=== PATIENT | male | born 1970 ===

== ENCOUNTER 2023-01-27 08:30 | Outpatient (REF) | payer MEDICAID, SELFPAY ==
[2023-01-27 14:22] LABS: Cholesterol 208 mg/dL; HDL Cholesterol 44 mg/dL; LDL Cholesterol Calculated 147 mg/dl; Triglycerides 88 mg/dL
== END 2023-01-27 08:31 | disposition home or self-care (01) ==
LOC: HO.HHCL 08:30
PROVIDERS: Visit Provider Registered Nurse
DX: E78.2 Mixed hyperlipidemia (principal)
CPT/HCPCS: 36415; 80061

== ENCOUNTER 2023-03-16 14:02 | Outpatient (REF) | payer MEDICAID, OTHER, SELFPAY ==
[2023-03-16 16:36] LABS: Prostate Specific Antigen 0.71 ng/mL (<0.05-4.0)
[2023-03-17 04:59] LABS: CT PCR NOT DETECTED (Not Detect.); NG PCR NOT DETECTED (Not Detect.)
== END 2023-03-16 14:03 | disposition home or self-care (01) ==
LOC: HO.HHCL 14:02
PROVIDERS: Visit Provider Registered Nurse
DX: Z12.5 Encounter for screening for malignant neoplasm of prostate (principal); R30.0 Dysuria; R39.89 Other symptoms and signs involving the genitourinary system
CPT/HCPCS: 0353U; 36415; 84153; 87086

== ENCOUNTER 2024-01-24 13:44 | Inpatient (IN) | payer SELFPAY ==
[2024-01-24] VITALS (46 sets, daily range): BP systolic 49–148; BP diastolic 21–107; PULSE 80–141; RESP 14–24; TEMP 30–38.7; O2SAT 88–98; BMI 28.5; BMI 30.1
--- NOTE | ~2024-01-24 | XR_ITS ---
EXAMINATION: XR CHEST CLINICAL INFORMATION: Ventilation COMPARISON: None available. TECHNIQUE: Frontal view of the chest was obtained. FINDINGS: There is low lung volume bilaterally with bibasilar atelectasis and increase interstitial markings. There is endotracheal tube visualized with the tip 3.9 cm above the alvarado. Nasogastric tube is in the stomach. XR/XR chest 1V IMPRESSION: Well-positioned endotracheal tube and nasogastric tube. Bibasilar atelectasis.
--- NOTE | ~2024-01-24 | CT_ITS ---
EXAMINATION: CT ABDOMEN AND PELVIS WITHOUT AND WITH CONTRAST -GI BLEEDING STUDY CLINICAL INFORMATION: Rectal bleeding COMPARISON: None TECHNIQUE: Multidetector volumetric imaging was performed from the superior aspect of the liver through the pubic symphysis first without and then with intravenous contrast. A total of 80 mL of Omnipaque 350 was utilized for the study. Sagittal and coronal reformatted images were obtained on the technologist's workstation. This CT examination was performed using dose optimization techniques as appropriate, variously including the following: *Automated exposure control *Adjustment of mA and/or kV according to patient size (this includes techniques or standardized protocols for targeted exams where dose is matched to indication/reason for exam; i.e. extremities or head) *Use of iterative reconstruction technique DLP: 3077 mGy-cm (for all CT scans performed including the GI bleed study, the head CT and cervical spine CT) FINDINGS: LUNG BASES: Bibasilar atelectasis is present. There is a calcified left upper lobe granuloma. LIVER, GALLBLADDER, AND BILIARY TREE: The liver is normal in size, shape, and attenuation. No focal hepatic lesion or biliary ductal dilatation is present. The gallbladder is unremarkable with no evidence of radiopaque gallstones, gallbladder wall thickening, or obvious pericholecystic inflammatory changes. PANCREAS: Unremarkable. SPLEEN: Unremarkable. ADRENAL GLANDS: Unremarkable. KIDNEYS AND URETERS: The kidneys are normal in size, shape, and attenuation. No hydronephrosis, hydroureter, or calculi seen. No perinephric stranding. BLADDER: Blackman catheter is present in the bladder which is empty. GASTROINTESTINAL TRACT: The small and large bowel are unremarkable. The appendix is unremarkable. There is no extravasation of contrast seen into bowel lumen with no evidence to suggest active GI bleeding at this time. ABDOMINAL WALL: No significant hernia is appreciated. LYMPH NODES: Normal. VASCULAR: Unremarkable. PELVIC VISCERA: Unremarkable. OSSEOUS STRUCTURES: Unremarkable. CT/CT gi bleed abd pel wo/w IVcon IMPRESSION: A cause for the patient's rectal bleeding has not been found. No evidence of active GI bleeding at this time. Fleischner guidelines were followed.
--- NOTE | ~2024-01-24 | CT_ITS ---
EXAMINATION: CT HEAD WITHOUT CONTRAST CT CERVICAL SPINE WITHOUT CONTRAST CLINICAL INFORMATION: Fall. Pain. COMPARISON: None available. TECHNIQUE: Contiguous axial imaging was performed through the head and cervical spine without intravenous administration of contrast. Sagittal and coronal reformatted images also obtained. This CT examination was performed using dose optimization techniques as appropriate, variously including the following: *Automated exposure control *Adjustment of mA and/or kV according to patient size (this includes techniques or standardized protocols for targeted exams where dose is matched to indication/reason for exam; i.e. extremities or head) *Use of iterative reconstruction technique DLP: 3077 mGy-cm FINDINGS: Contrast within the arterial and venous structures limits evaluation for subarachnoid hemorrhage. Motion also slightly limits evaluation. The lateral, third and fourth ventricles are normally outlined. The cortical sulci and basal cisterns are normally outlined as well. There appears to be loss of baird-white differentiation. There is no acute territorial defect or evidence for parenchymal hemorrhage. Calvarium/scalp: Intact tach. Maxillofacial sinuses and mastoids: There is small maxillary sinus opacity and ethmoid sinus mucosal thickening. The remaining visualized maxillofacial sinuses and the mastoids are clear. There is nasopharyngeal fluid. Cervical spine: Motion limits evaluation The alignment is within normal limits. There is mild diffuse cervical disc degenerative change with loss of disc space, endplate change and posterior osteophytes associated with mild to moderate diffuse facet osteoarthritic hypertrophic change with multilevel mild spinal canal and neuroforaminal narrowing. No definitive fracture is seen. The soft tissues are unremarkable. There is upper lung field atelectatic change. The patient is intubated. CT/CT cervical spine wo IV con IMPRESSION: Study is limited by motion and contrast within the vascular system. 1. Study is limited for the evaluation of subarachnoid hemorrhage due to contrast within vascular structures. No evidence for parenchymal hemorrhage. 2. Loss of baird-white differentiation. This may be related to cerebral edema. Consider repeat/follow-up study 3. No evidence of acute fracture or dislocation cervical spine. 4. Mild to moderate cervical spondylosis. 5. Mild paranasal sinus disease.
--- NOTE | ~2024-01-24 | MR_ITS ---
EXAMINATION: MR BRAIN WITHOUT CONTRAST CLINICAL INFORMATION: Anorexic brain injury. COMPARISON: None available. TECHNIQUE: MRI of the brain was obtained using routine sequences without contrast. FINDINGS: Diffuse restricted diffusion and cerebral edema throughout the cerebral cortices, deep nuclei, and cerebellum with ADC values along the cerebral cortices measuring approximately 500. Near-complete effacement of the cerebral sulci and CSF spaces of the posterior fossa. There is flattening of the ventral brain stem and downward herniation of the cerebellar tonsils through the foramen magnum (0.8 cm). Heme-sensitive imaging is notable for diffuse venous engorgement without overt evidence of space-occupying hemorrhagic transformation. No evidence of obstructive hydrocephalus at this time. No midline shift. The patient is intubated with orogastric tube in place. Normal, homogeneous marrow signal. Mild mucosal thickening of the paranasal sinuses. No signal abnormalities within the mastoids. MR/MR head/brain wo con IMPRESSION: Diffuse cerebral edema and restricted diffusion throughout the cerebral cortices, deep nuclei, and cerebellum consistent with developing anoxic brain injury. There is downward herniation of the cerebellar tonsils through the foramen magnum (0.8 cm). No evidence of space-occupying hemorrhagic transformation at this time.
--- NOTE | 2024-01-24 14:18 | ED.CPR ---
HPI - CPR General Chief Complaint: Cardiac Arrest/CPR Stated Complaint: CARDIAC ARREST Time Seen by Provider: 01/24/24 14:15 Source: EMS Mode of arrival: EMS History of Present Illness ED Provider: Dr Zuñiga HPI narrative: 52-year-old male who arrives with CPR in progress, found down, unknown amount of time, has an IO in place, has received epi, the Richard is in place, did receive 1 shock for observed VFib while in the field, has received 1 treatment of Narcan, I gel is in place for airway management and EMS personnel report the smell of alcohol. Related Data Allergies Allergy/AdvReac Type Severity Reaction Status Date / Time Unable to Assess Allergy Unverified 01/24/24 14:04 Review of Systems Review of Systems: Yes unobtainable due to endotracheal tube PMFSH Past Medical History Source: nursing notes reviewed Physical Exam Vital Signs: Vital Signs: Last Vital Signs Temp 98.4 F 01/24/24 14:42 Pulse 120 H 01/24/24 14:47 Resp 16 01/24/24 14:42 BP 117/64 01/24/24 14:47 FiO2 100 01/24/24 14:29 BMI result Body Mass Index 28.5 Patient intubated Richard and CPR in progress Glucose in the field not consistent with hypoglycemia No traumatic injuries observed, there has been obvious urine incontinence. Medications Administered Discontinued Medications Generic Name Dose Route Start Last Admin Trade Name Freq PRN Reason Stop Dose Admin Epinephrine 5 mg/ Dextrose 255 mls @ 0 mls/hr 01/24/24 14:15 01/24/24 14:47 IVCONT 0 mcg/kg/min .Q0M RYAN 0 mls/hr Titration Protocol Per Protocol Pantoprazole Sodium 80 mg 01/24/24 14:25 01/24/24 14:47 Pantoprazole Sodium 40 Mg/10 Ml Vial IVPUSH 01/24/24 14:26 80 mg ONCE ONE Administration Medical Decision Making Medical Decision Making [facility] Narrative: ROSC obtained EKG: Marked ST globally, likely consistent with cardiac arrest/CPR, no ST elevations, HR-81, QTC within normal limits and IA is within normal limits. Intubated with 8.0/bougie with good color change, initial persisted hypoxia, repositioned tube for possibility of right mainstem and oxygenation improved. Bloody stool, large amount of reddish feces, no melena, gave 80 of Protonix, sent guaiac stool and ordered 2 units urgent release of blood while awaiting type and screen. 1425: 2U urgent release, chest x-ray demonstrates tip of the endotracheal tube at the alvarado, will instruct respiratory therapy to pulled back in additional cm otherwise no pneumothorax appreciated. 1431: Calling sister (Nancy), who informs this via motor generator set operator that her brother has a history of using a lot of drugs and alcohol and they have called her previously for overdose visits to the emergency room. She will be coming in as soon as she can establish a ride. 1500: I discussed the case with Dr. Calderon, ux designer, who will see the patient and make any additional recommendations. Differential Diagnosis Differential Diagnoses: The differential diagnosis associated with the presentation includes Please see the discussion above Admission/Observation Consideration of admission/observation: Escalation of care including admission/observation considered Please see the discussion above Consult Healthcare Provider Management of the patient was discussed with: Systems Eng Please see the discussion above Lab Data MDM Lab Attestation statement: I reviewed the patient's lab results. Please see the discussion above 01/24/24 14:29 01/24/24 14:29 Labs: Lab Results 01/24/24 Range/Units 14:29 PT 10.7 L (11.1-13.3) SEC INR 0.9 (0.9-1.1) Stool Occult Blood POSITIVE (NEGATIVE) Crossmatch See Detail Independent Interpretation I performed an independent interpretation of an: EKG Interpretation: Global ST njury likely secondary to prolonged CPR with chest compressions do not feel that this is a primary cardiac event. Radiology Impression Discussion of test interpretation with radiology: I have reviewed the radiologist's reading. Radiologist Impression: Please see the discussion above Independent Historian Clinical information obtained from an independent historian. History obtained from or confirmed by: Other Sister via motor generator set operator Social Determinants Patient?s care significantly limited by Social Determinants of Health including: Alcoholism and drug addiction in family Procedures Intubation Intubation Type:: Endotracheal Tube Insertion Intubation Date:: 01/24/24 Intubation Time:: 14:30 Time out performed: No sedative: none paralytic: other Laryngoscope: fiber optic video scope Assist Device Used: Bougie ET Tube Size: 8 ET Tube Uncuffed: No Tube Secured Depth (cm): 25 Tube Secured Location: teeth Tube Placement Confirmation: visualized tube passing through cords, equal breath sounds bilaterally, no breath sounds over epigastrium and confirmation by capnometry Patient Tolerated Procedure: well Intubation Complications: none Critical Care Time Critical Care Time Critical Care Time: Yes Total Critical Care Time: 90 Attestation: I personally attest to this time spent taking care of the patient. Discharge Plan Discharge Clinical Impression: Cardiac arrest, Polysubstance use disorder Patient Disposition: Admitted As Inpatient
--- NOTE | 2024-01-24 14:19 | ECG_ITS ---
Test Reason : QTC CHESK Blood Pressure : / mmHG Vent. Rate : 081 BPM Atrial Rate : 081 BPM P-R Int : 162 ms QRS Dur : 108 ms QT Int : 386 ms P-R-T Axes : 045 -05 055 degrees QTc Int : 448 ms Normal sinus rhythm Marked ST abnormality, possible inferior subendocardial injury Marked ST abnormality, possible anterolateral subendocardial injury Abnormal ECG No previous ECGs available Referred By: Ema Zuñiga Electronically Signed By:
[2024-01-24] MEDS: Norepinephrine Bitartrate/NS 32 MG/250 ML PLAST..BAG IVCONT (14:23)
--- NOTE | 2024-01-24 14:32 | PC.RT ---
Pt came in via EMS code blue, CPR in progress, being ambu bag ventilated through i gel inserted via EMS. Proper ACLS protocol was performed on pt. After getting pulses back, i gel was taken out by RT and MD attempted intubated x3. Pt intubated w/ an 8.0 ETT sitting 26 cm at the lip. Pt SATs were unstable at 60%. ETT was pulled back to 24 cm at the lip. SATs improved to mid 90's. Intubation was confirmed w/ colormetric CO2, quantitate CO2, bilateral breath sounds, increased SaO2, and chest x-ray. ETT secured. Pt placed on ventilator via ideal body weight settings, leo well.
[2024-01-24] MEDS: EPINEPHrine 5 MG in Dextrose 5 % 250 ML 55.08 MG IVCONT (14:35)
[2024-01-24 14:38] LABS: OBS Int Ctl Valid YES; OBS1 POSITIVE (NEGATIVE)
[2024-01-24 14:45] LABS: Basophils Absolute Auto 0.1 X10*3/uL (0.0-0.2); Basophils Percent Auto 0.6 % (0-2); Eosinophils Absolute Auto 0.2 X10*3/uL (0.0-0.4); Eosinophils Percent Auto 1.2 % (0-4); Hematocrit 40.4 % (42.0-52.0); Hemoglobin 13.1 g/dl (14.0-18.0); Imm Gran Abs Auto 0.48 X10*3/uL (0.00-0.03); Lymphocytes Absolute Auto 5.9 X10*3/uL (1.2-4.9); Lymphocytes Percent Auto 36.8 % (20-40); MANUAL DIFF FLAG SCAN; Mean Corpuscular HGB Conc 32.4 g/dl (31.0-36.0); Mean Corpuscular Hemoglobin 29.2 pg (27.0-33.0); Mean Platelet Volume 9.5 fL (9.4-12.4); Monocytes Absolute Auto 1.2 X10*3/uL (0.1-1.2); Monocytes Percent Auto 7.7 % (2-11); NRBC Pct Auto 0.1 /100WBC (0.0-0.2); Neutrophils Absolute Auto 8.1 x10*3/uL (2.0-8.3); Neutrophils Percent Auto 50.7 % (45-73); Platelet Count 242 X10*3/uL (160-400); Red Blood Count 4.49 X10*6/uL (4.60-5.80); SCAN SMEAR FLAG 1
[2024-01-24] MEDS: Pantoprazole Sodium 40 MG/10 ML VIAL 80 MG IVPUSH (14:47)
[2024-01-24 14:51] LABS: INTERNATIONAL NORM RATIO 0.9 (0.9-1.1); Prothrombin Time 10.7 SEC (11.1-13.3)
--- NOTE | 2024-01-24 15:03 | PC.NURSE ---
Late entry: EMS presented to ED with working cardiac arrest. Story from EMS: pt found slumped over on a sidewalk by bystanders. Bystander initiated BLS CPR for approx 5 mins prior to ALS arrival. ALS did 15 mins of ACLS: #4 IGEL, 5 epi 1:10,0000, 2mg of narcan, IO in left tibia. Pt presented at [address] Code initiated here in ED, provider and multiple RNs and techs at bedside. SEE CODE SHEETS.
[2024-01-24 15:06] LABS: Troponin-I High Sensitivity 5.4 ng/L (<3.5-35.0)
[2024-01-24 15:08] LABS: Alanine Aminotransferase 234 U/L (0-40); Albumin Level 3.7 g/dL (3.5-5.0); Alkaline Phosphatase 75 U/L (39-117); Anion Gap 22 (12-20); Aspartate Amino Transferase 215 U/L (5-37); Bilirubin Total 0.3 mg/dL (0.0-1.0); Blood Urea Nitrogen 12 mg/dL (9-16); Calcium 8.2 mg/dL (8.4-10.2); Carbon Dioxide 19 mmol/L (22-29); Chloride 106 mmol/L (96-108); Estimated Glomerular Filt Rate 59; Ethanol 157 mg/dL; Glucose Random 323 mg/dL (60-115); Potassium 3.7 mmol/L (3.3-5.1); Sodium 143 mmol/L (135-145); Total Protein 5.8 g/dL (6.5-8.0)
[2024-01-24 15:12] LABS: Lactic Acid 11.5 mmol/L (0.5-2.0)
[2024-01-24 15:18] LABS: SLIDE REVIEW VERIFIED
--- NOTE | 2024-01-24 15:26 | PC.RT ---
ETT pulled back 2cm per entertainment production professional request. ETT now sits 22 cm at the lip.
[2024-01-24] MEDS: cefTRIAXone sodium 2 GM in 0.9 % Sodium Chloride 50 ML IV (15:32)
[2024-01-24] MEDS: Naloxone HCl 2 MG/2 ML SYRINGE IVPUSH (15:32)
--- NOTE | 2024-01-24 15:37 | PC.NURSE ---
Late entry: See code sheet for full information. Pt intubated with 8.0 ETT by , OG attempted to be placed without success. Pt on vent, setting: RR 16, TV 440, Peep 8, 40%. Pt has three lines of access, 18G in right upper arm, 18G in right AC, 20G in left AC. Pt medicated per [place], Norepi titrations done in emergency with MD at bedside, verbal orders. Pt had one large bloody bowel movement, stool occult sent. Pt cleaned.
[2024-01-24 15:38] LABS: Glucose, Whole Blood 233 mg/dL (60-115)
[2024-01-24 15:38] LABS: Appearance Urine Clear; Color Urine Yellow; Glucose Urine UA 100 mg/dL (Negative); Leukocyte Esterase Urine Negative (Negative); Nitrite Urine Negative (Negative); Specific Gravity - Urine <= 1.005 (1.005-1.025); UMIC TRIGGER UACC YES; Urine Blood Moderate (2+) (Negative); Urine Ketones Negative (Negative); Urine Protein 300 (3+) mg/dL (Neg-Trace)
--- NOTE | 2024-01-24 15:41 | PC.NURSE ---
Pt currently sinus tach on night monitor. Norepi, NS and ABX infusing. RT at bedside adjusting vent settings due to pt having increased RR. Urine output of 700 mL total, yellow clear urine. BP remains stable. No further bloody bowel movements noted at this time.
--- NOTE | 2024-01-24 15:42 | PC.NURSE ---
Family at bedside, are unsure if he has any allergies, unable to verify.
[2024-01-24 15:49] LABS: Phosphorus 7.1 mg/dL (2.7-4.5)
[2024-01-24 15:56] LABS: Bacteria Urine 1+ (None Seen); Hyaline Casts Urine 0-2 /LPF (0-2); RBC Urine 0-2 /HPF (0-2); Squamous Epithelial Cell Urine 0-2 /HPF (0-2); WBC Urine 0-5 /HPF (0-5)
--- NOTE | 2024-01-24 15:56 | PC.NURSE ---
Vitals edited in norepi titration in SEP to reflect printed vitals
--- NOTE | 2024-01-24 15:58 | PC.NURSE ---
Late entry: Two units of unmatched blood infused with 2 RNs verifying. No infusion-related reaction noted during this time, pt tolerated infusion well. Vitals documented.
--- NOTE | 2024-01-24 16:08 | PC.NURSE ---
ICU MD at bedside with family. Verbal orders to titrate Norepi down by 0.02 mcg/kg/min for a goal map of 65. Titrations per MAR
[2024-01-24 16:37] LABS: Reflex Lactate? Lactic Acid Added
[2024-01-24 17:00] LABS: Amphetamine Screen Urine Not Detected (Not Detect); Barbiturates, Urine Not Detected (Not Detect); Benzodiazepines Screen Urine Not Detected (Not Detect); Buprenorphine Scr Not Detected (Not Detect); Cannabinoid Screen Urine Not Detected (Not Detect); Cocaine Screen Urine Not Detected (Not Detect); Fentanyl, urine POSITIVE (Not Detect); Methadone Screen, Urine Not Detected (Not Detect); Opiate Screen Urine Not Detected (Not Detect); Oxycodone Screen Urine Not Detected (Not Detect); Phencyclidine Screen Urine Not Detected (Not Detect)
[2024-01-24] MEDS: iohexoL 350 MG/ML 100 ML INFUS..BTL IV (17:23)
[2024-01-24] MEDS: Norepinephrine Bitartrate/D5W 8 MG/250 ML PLAST..BAG 17.83 MG IV (17:30)
--- NOTE | 2024-01-24 17:53 | P.CONCC_ITS ---
History of Present Illness Data of Consult Service Date: 01/24/24 Primary Care Provider: Unknown Physician HPI Reason for consult: Cardiac arrest 53-year-old male with past medical history of hypertension, dropped became abuse, multiple admissions in the past for drug use disorder was found unresponsive in the street and EMS was called. When the EMS reached patient was in asystole, CPR was started later hooked to a Richard, LMA was placed and brought into the ED. EN route patient received 5 doses of epinephrine, in the ED CPR was continued for another 15 minutes, ET tube was placed and patient was placed on ventilator. There was 1 time when the rhythm converted into tarsal days and was defibrillated. Patient also had large bloody bowel movements in the ED. his hypotensive, started on Levophed support for vasopressor. Review of Systems 2 Review of Systems: Unable to obtain as patient is intubated PMFSH Social History Social History Advance Directives: No Meds Allergies Allergy/AdvReac Type Severity Reaction Status Date / Time Unable to Assess Allergy Unverified 01/24/24 14:04 Active Medications: Current Medications Norepinephrine Bitartrate (Levophed) 8 mg in 250 mls @ 0 mls/hr IV .Q0M RYAN; Protocol Lactated Ringer's (Lr) 1,000 mls @ 999 mls/hr IV .Q1H1M ONE Stop: 01/24/24 18:51 Physical Exam 2 Vital Signs: Vital Signs: Last Vital Signs Temp 98.3 F 01/24/24 15:45 Pulse 125 H 01/24/24 17:00 Resp 14 01/24/24 17:00 BP 130/96 H 01/24/24 17:00 Pulse Ox 95 01/24/24 17:00 O2 Del Method Mechanical Ventil ation 01/24/24 17:00 O2 Flow Rate 40 01/24/24 16:19 FiO2 35 01/24/24 17:42 BMI result Body Mass Index 30.1 General: Patient in acute distress Nutritional Appearance: well nourished and overweight Eyes: appearance normal, both eyes and all related structures; Alignment and Position: alignment normal and position normal Neck: No lymphadenopathy, no thyromegaly Resp: bilateral air entry equal, occasional added sounds present Cardio: Regular rate, regular rhythm; Heart sounds: S1 normal heart sound present and S2 normal heart sound present GI: soft, nontender, no guarding, no hepatosplenomegaly : bladder normal to inspection, bladder normal to palpation, no renal angle tenderness Skin: no rashes or lesions noted and elasticity normal Neuro: Absent brainstem reflexes, no cornea, no gag, no pupillary reflexes. Patient has no movement voluntary or involuntary Results Labs 01/24/24 14:29 01/24/24 14:29 Labs: Short CBC 01/24/24 Range/Units 14:29 WBC 16.0 H (4.8-10.8) X10*3/uL Hgb 13.1 L (14.0-18.0) g/dl Hct 40.4 L (42.0-52.0) % Plt Count 242 (160-400) X10*3/uL BMP 01/24/24 14:29 Sodium 143 Potassium 3.7 Chloride 106 Carbon Dioxide 19 L BUN 12 Creatinine 1.28 Calcium 8.2 L Liver Function 01/24/24 Range/Units 14:29 Total Bilirubin 0.3 (0.0-1.0) mg/dL AST 215 H (5-37) U/L ALT 234 H (0-40) U/L Alkaline Phosphatase 75 (39-117) U/L Albumin 3.7 (3.5-5.0) g/dL Urine 01/24/24 Range/Units 15:27 Urine Color Yellow Urine Appearance Clear Urine pH 7.0 (5.0-9.0) Ur Specific [place] <= 1.005 (1.005-1.025) Urine Protein 300 (3+) H (Neg-Trace) mg/dL Urine Glucose (UA) 100 H (Negative) mg/dL Assessment and Plan (1) Acute encephalopathy: Status: Acute (2) Acute respiratory failure: Status: Acute (3) Lactic acidosis: Status: Acute (4) Cardiogenic shock: Status: Acute Plan Neuro: Acute encephalopathy possibly due hypoxic ischemic brain injury given long duration of downtime, in addition there might be accompanied of drug overdose CT of the head done to rule out hypoxic brain injury Not a candidate for cooling protocol given the drug overdose and active GI bleed Close neurological status monitoring in the ICU every hour Cardiac arrest: Possibly secondary to drug overdose, down time of at least 25 minutes of active cardiac compressions with unknown down time prior to arrival of EMS Shock: Possibly secondary to cardiac arrest, possibly cardiogenic shock On Levophed support, titrate Levophed to keep map above 65 mm Hg Lactic acidosis: Secondary to cardiac arrest, we will give 1 L of LR, we will repeat lactate at 20:00 Respiratory: Acute respiratory failure due to drug overdose leading to poor respiratory efforts Currently on ventilator support On PRVC mode FiO2 40, PEEP 5, TV 400, RR 20 Peak pressures and plateau pressures are under the curve Ventilator management bundle with head end elevation, aspiration precaution, chlorhexidine mouthwash, daily awakening trials, daily spontaneous breathing trials GI bleed: Possibly secondary to stress ulcers We will closely monitor H&H We will start on pantoprazole 40 mg IV b.i.d. Renal: Possibly has been Acute kidney injury due to ATN from cardiac arrest, would expect the creatinine to go up tomorrow We will closely monitor I's and O's Avoid nephrotoxic medications Heme: Acute blood loss anemia: Secondary to GI bleed, we will repeat a hemoglobin Received 2 units of PRBC in the ED Endocrine: Blood sugars under control Sliding scale insulin as needed Infectious disease: We will send pancultures Musculoskeletal: Decubitus ulcer prevention protocol Lines: Peripheral Prophylaxis: SCD, no heparin due to GI bleed, pantoprazole Family has been explained in detail about the possible poor prognosis given his prolonged code and absent brain reflexes, no spontaneous voluntary or involuntary movements. Critical care time spent is about 45 minutes on managing this critically ill patient with long cardiac arrest needing ventilator management, close hemodynamic monitoring, vasopressor management, post resuscitation management, active GI bleed. This time is excluding all the procedure time Total time managing care of this patient today: 45 minutes.
[2024-01-24] MEDS: Lactated Ringers 1,000 ML 999 ML IV (18:14)
--- NOTE | 2024-01-24 19:33 | PC.NURSE ---
Pt arrived at the ICU approximately?at 1720. pbx installer, and vent set up.? Pt noted to be tachycardic?Md aware and at bedside. Heart rate <150 per md VO.? Levophed titrated per MAR, LR Bolus given. Pt noted to have red/yellow oral secretions. Oral cavity suctioned and NG tube insertion?attempted but unsuccessful.?
[2024-01-24 19:41] LABS: Mean Corpuscular HGB Conc 34.1 g/dl (31.0-36.0); Mean Corpuscular Hemoglobin 29.4 pg (27.0-33.0); Mean Corpuscular Volume 86.2 fL (80.0-98.0); Mean Platelet Volume 8.9 fL (9.4-12.4); Platelet Count 206 X10*3/uL (160-400); Red Blood Count 6.47 X10*6/uL (4.60-5.80); Red Cell Distribution Width 13.8 % (11.0-16.0); White Blood Count 16.6 X10*3/uL (4.8-10.8)
[2024-01-24 19:46] LABS: Hematocrit 55.8 % (42.0-52.0)
[2024-01-24 20:08] LABS: ~Lactic Acid-LAB USE ONLY 6.4 mmol/L (0.5-2.0)
[2024-01-24 20:09] LABS: Alanine Aminotransferase 380 U/L (0-40); Albumin Level 4.1 g/dL (3.5-5.0); Alkaline Phosphatase 90 U/L (39-117); Anion Gap 21 (12-20); Aspartate Amino Transferase 665 U/L (5-37); Bilirubin Total 0.3 mg/dL (0.0-1.0); Blood Urea Nitrogen 15 mg/dL (9-16); Carbon Dioxide 13 mmol/L (22-29); Chloride 115 mmol/L (96-108); Creatinine Clr Calc Pharmacy 66.6; Estimated Glomerular Filt Rate 49; Glucose Random 104 mg/dL (60-115); Magnesium 2.1 mg/dL (1.6-2.6); Phosphorus 1.6 mg/dL (2.7-4.5); Potassium 4.2 mmol/L (3.3-5.1); Sodium 145 mmol/L (135-145); Total Protein 6.9 g/dL (6.5-8.0)
[2024-01-24] MEDS: Lactated Ringers 1,000 ML 100 ML IVCONT (21:31)
--- NOTE | 2024-01-24 21:32 | PHA.MEDREC ---
Addendum entered by Gregg Lang 01/25/24 09:33: Called [facility] pharmacy to see if he has filled over there and they informed me he never ended up picking anything they filled for him and they returned it to their stock. Also called and spoke to his brother Kaden and he confirmed he isnt taking any medications daily at home that he could remember. Original Note: Pharmacy Consult ? Medication Reconciliation Pharmacy has completed the medication reconciliation. Patient was unresponsive when brought in and brought to ICU. Spoke with sister at bed side to confirm meds , however she didn't know what patients takes at home. Sister says Patient lives with brother Kaden [phone] and will have him send a list when he get out of work. She also stated patient fills his medication at [facility] pharmacy. Called the pharmacy and the pharmacist said there was no claims since 05-05-23. So, tried reaching out to the brother Kaden, However i was unsuccessful reaching the patients brother with multiple attempts. Messaged the ICU nurse at 8:49pm to ask if any update on med list from family. Nurse Ora Delacruz says I don?t know if they have access to his med list. His sister was here, [place]. will have med rec follow up tomorrow.
[2024-01-24] MEDS: Sodium,Potassium Phosphates POWD.PACK 2 PACKET PO (21:34)
[2024-01-24 21:38] LABS: Reflex Lactate? 2 Y
[2024-01-24 22:39] LABS: ~Lactic Acid-LAB USE ONLY 4.2 mmol/L (0.5-2.0)
[2024-01-25] VITALS (36 sets, daily range): BP systolic 93–173; BP diastolic 47–112; PULSE 97–128; RESP 17–29; TEMP 35–37.9; O2SAT 89–97; BMI 32.2
[2024-01-25] MEDS: Norepinephrine Bitartrate/D5W 8 MG/250 ML PLAST..BAG 21.4 MG IV (02:21)
[2024-01-25 05:26] LABS: VBG Base Excess -12.7 mmol/L; VBG HCO3 15 mmol/L (22-26); VBG pCO2 42 mmHg; VBG pH 7.16 (7.32-7.43); VBG pO2 35 mmHg
[2024-01-25 05:31] LABS: Basophils Absolute Auto 0.1 X10*3/uL (0.0-0.2); Basophils Percent Auto 0.4 % (0-2); Imm Gran Abs Auto 0.09 X10*3/uL (0.00-0.03); Imm Gran Pct Auto 0.7 % (0.0-0.4); Lymphocytes Percent Auto 7.3 % (20-40); MANUAL DIFF FLAG SCAN; Mean Corpuscular HGB Conc 32.8 g/dl (31.0-36.0); Mean Corpuscular Volume 88.4 fL (80.0-98.0); Mean Platelet Volume 9.2 fL (9.4-12.4); Monocytes Absolute Auto 1.9 X10*3/uL (0.1-1.2); Monocytes Percent Auto 14.3 % (2-11); NRBC Pct Auto 0.1 /100WBC (0.0-0.2); Neutrophils Absolute Auto 10.4 x10*3/uL (2.0-8.3); Neutrophils Percent Auto 77.3 % (45-73); Platelet Count 235 X10*3/uL (160-400); Red Blood Count 6.92 X10*6/uL (4.60-5.80); Red Cell Distribution Width 15.7 % (11.0-16.0); SCAN SMEAR FLAG 1; White Blood Count 13.5 X10*3/uL (4.8-10.8)
[2024-01-25 05:34] LABS: Venous Blood Gas Refer to POC result
[2024-01-25 05:36] LABS: Hematocrit 61.2 % (42.0-52.0); Hemoglobin 20.1 g/dl (14.0-18.0)
[2024-01-25] MEDS: Sodium Bicarbonate 8.4% 50 MEQ/50 ML SYRINGE 100 MEQ IVPUSH (05:51)
[2024-01-25 05:53] LABS: Alanine Aminotransferase 396 U/L (0-40); Albumin Level 4.1 g/dL (3.5-5.0); Alkaline Phosphatase 82 U/L (39-117); Anion Gap 21 (12-20); Aspartate Amino Transferase 357 U/L (5-37); Bilirubin Total 0.6 mg/dL (0.0-1.0); Blood Urea Nitrogen 25 mg/dL (9-16); Calcium 8.3 mg/dL (8.4-10.2); Carbon Dioxide 17 mmol/L (22-29); Chloride 113 mmol/L (96-108); Creatinine Clr Calc Pharmacy 44.7; Estimated Glomerular Filt Rate 30; Glucose Random 109 mg/dL (60-115); Magnesium 2.3 mg/dL (1.6-2.6); Phosphorus 5.6 mg/dL (2.7-4.5); Potassium 5.1 mmol/L (3.3-5.1); Sodium 146 mmol/L (135-145); Total Protein 7.1 g/dL (6.5-8.0)
[2024-01-25 05:54] LABS: SLIDE REVIEW VERIFIED
[2024-01-25] MEDS: Sodium Bicarbonate 8.4% 150 MEQ in Dextrose 5 % 850 ML 100 MEQ IV ×2 (06:10→17:01)
[2024-01-25] MEDS: Pantoprazole Sodium 40 MG/10 ML VIAL IVPUSH ×2 (06:10→17:35)
--- NOTE | 2024-01-25 06:39 | PC.NURSE ---
Patient placed on cooling blanket at start of shift, for core temp of 102.0. Cooling blanket remained under patient throughout the shift, paused when temp was below 98.6. Cooling blanket restarted when core temp was above 99. OG tube placed, clamped. Fecal management system inserted after multiple liquid stools. PA aware of decrease in urine output at midnight.
[2024-01-25 07:50] LABS: Reflex Lactate? Lactic Acid Added
--- NOTE | 2024-01-25 08:43 | P.CDIM_ITS ---
PROVIDER RESPONSE TEXT: To clarify, the appropriate diagnosis supported by the clinical indicators: Acute QUERY TEXT: PHYSICIAN'S DOCUMENTATION REQUEST Date of Query: 01/25/2024 08:23 AM EDT Patient Name: KOBY GALDAMEZ Admit Date: 01/24/2024 Dear Regis Calderon MD, A review of the medical record indicates additional documentation may be needed. Please review below and update the documentation accordingly. Clinical Indicators: LA 11.5 on 01/24/24 Per Critical Care Consultation Note 01/24/24: Lactic acidosis: Secondary to cardiac arrest, we will give 1 L of LR Clarify which of the following accurately represents the acuity of the Lactic acidosis. Possible options might include: Acute Acute on chronic Compensated Chronic stable condition Remission Other (explain) Clinically unable to determine (explain) Thank you, Nayana Dover RN Use of terms such as suspected, likely, concern for, or probable (associated with a specific diagnosi s that is being evaluated, monitored, or treated as if it exists) are acceptable and can be coded in the inpatient se tting, when documented at the time of discharge. Please use your independent medical judgment in providing your response. THIS QUERY IS PART OF THE PERMANENT MEDICAL RECORD
--- NOTE | 2024-01-25 08:48 | P.PNCC_ITS ---
Subjective Subjective Date of Service: 01/25/24 Interval History: Continues to be on ventilator support No brainstem reflexes yet, no spontaneous movements On Levophed for vasopressor support Critical Care Time (minutes): 45 Physical Exam 2 Vital Signs: Vital Signs: Last Vital Signs Temp 100.0 F 01/25/24 08:00 Pulse 106 H 01/25/24 08:00 Resp 20 01/25/24 08:00 BP 113/70 01/25/24 08:00 Pulse Ox 95 01/25/24 08:00 O2 Del Method Mechanical Ventil ation 01/25/24 08:00 O2 Flow Rate 40 01/24/24 16:19 FiO2 60 01/25/24 08:00 BMI result Body Mass Index 32.2 General: Ill-appearing, on ventilator support Nutritional Appearance: well nourished and overweight Eyes: appearance normal, both eyes and all related structures; Alignment and Position: alignment normal and position normal Neck: No lymphadenopathy, no thyromegaly Resp: bilateral air entry equal, occasional added sounds present Cardio: Regular rate, regular rhythm; Heart sounds: S1 normal heart sound present and S2 normal heart sound present GI: soft, nontender, no guarding, no hepatosplenomegaly : bladder normal to inspection, bladder normal to palpation, no renal angle tenderness Skin: no rashes or lesions noted and elasticity normal Neuro: Absent brainstem reflexes, no spontaneous voluntary or involuntary movements Objective Data Labs 01/25/24 10:17 01/25/24 10:17 Labs: Laboratory Results - last 24 hr 01/24/24 01/24/24 01/24/24 14:29 14:29 14:29 WBC 16.0 H RBC 4.49 L Hgb 13.1 L Hct 40.4 L MCV 90.0 MCH 29.2 MCHC 32.4 RDW 13.0 Plt Count 242 MPV 9.5 Immature Gran % (Auto) 3.0 H Neut % (Auto) 50.7 Lymph % (Auto) 36.8 [place] % (Auto) 7.7 Eos % (Auto) 1.2 Baso % (Auto) 0.6 Lymph # (Auto) 5.9 H [place] # (Auto) 1.2 Eos # (Auto) 0.2 Baso # (Auto) 0.1 Abs Immat Gran (auto) 0.48 H Absolute Neuts (auto) 8.1 Absolute Nucleated RBC 0.020 H Nucleated RBC % (auto) 0.1 Smear Tech's Comments VERIFIED Smear Path Review PT 10.7 L INR 0.9 VBG pH VBG pCO2 VBG pO2 VBG HCO3 VBG O2 Saturation VBG Base Excess Sodium 143 Potassium 3.7 Chloride 106 Carbon Dioxide 19 L Anion Gap 22 H BUN 12 Creatinine 1.28 Estim Creat Clear Calc 77.0 Estimated GFR 59 POC Glucose Random Glucose 323 H Lactic Acid 11.5 H* Lactic Acid F/U @ 2Hr Lactic Acid F/U @ 4Hr Calcium 8.2 L Phosphorus Magnesium Total Bilirubin 0.3 AST 215 H ALT 234 H Alkaline Phosphatase 75 Troponin I High Sens 5.4 Total Protein 5.8 L Albumin 3.7 Hold Yellow Top Urine Color Urine Appearance Urine pH Ur Specific [place] Urine Protein Urine Glucose (UA) Urine Ketones Urine Blood Urine Nitrite Ur Leukocyte Esterase Urine RBC Urine WBC Ur Squamous Epith Cells Urine Bacteria Hyaline Casts Stool Occult Blood POSITIVE Urine Opiates Screen Ur Buprenorphine Scrn Ur Oxycodone Screen Urine Methadone Screen Urine Fentanyl Screen Ur Barbiturates Screen Ur Phencyclidine Scrn Ur Amphetamines Screen U Benzodiazepines Scrn Urine Cocaine Screen U Marijuana (THC) Screen Ethyl Alcohol 157 Blood Type AB Positive AB Positive Antibody Screen NEGATIVE NEGATIVE Crossmatch See Detail 01/24/24 01/24/24 01/24/24 14:29 15:27 15:33 WBC RBC Hgb Hct MCV MCH MCHC RDW Plt Count MPV Immature Gran % (Auto) Neut % (Auto) Lymph % (Auto) [place] % (Auto) Eos % (Auto) Baso % (Auto) Lymph # (Auto) [place] # (Auto) Eos # (Auto) Baso # (Auto) Abs Immat Gran (auto) Absolute Neuts (auto) Absolute Nucleated RBC Nucleated RBC % (auto) Smear Tech's Comments Smear Path Review PT INR VBG pH VBG pCO2 VBG pO2 VBG HCO3 VBG O2 Saturation VBG Base Excess Sodium Potassium Chloride Carbon Dioxide Anion Gap BUN Creatinine Estim Creat Clear Calc Estimated GFR POC Glucose 233 H Random Glucose Lactic Acid Lactic Acid F/U @ 2Hr Lactic Acid F/U @ 4Hr Calcium Phosphorus Magnesium Total Bilirubin AST ALT Alkaline Phosphatase Troponin I High Sens Total Protein Albumin Hold Yellow Top Urine Color Yellow Urine Appearance Clear Urine pH 7.0 Ur Specific [place] <= 1.005 Urine Protein 300 (3+) H Urine Glucose (UA) 100 H Urine Ketones Negative Urine Blood Moderate (2+) H Urine Nitrite Negative Ur Leukocyte Esterase Negative Urine RBC 0-2 Urine WBC 0-5 Ur Squamous Epith Cells 0-2 Urine Bacteria 1+ Hyaline Casts 0-2 Stool Occult Blood Urine Opiates Screen Not Detected Ur Buprenorphine Scrn Not Detected Ur Oxycodone Screen Not Detected Urine Methadone Screen Not Detected Urine Fentanyl Screen POSITIVE H Ur Barbiturates Screen Not Detected Ur Phencyclidine Scrn Not Detected Ur Amphetamines Screen Not Detected U Benzodiazepines Scrn Not Detected Urine Cocaine Screen Not Detected U Marijuana (THC) Screen Not Detected Ethyl Alcohol Blood Type Antibody Screen Crossmatch See Detail 01/24/24 01/24/24 01/24/24 15:34 19:28 19:32 WBC 16.6 H RBC 6.47 H D Hgb 19.0 H D Hct 55.8 H D MCV 86.2 MCH 29.4 MCHC 34.1 RDW 13.8 Plt Count 206 MPV 8.9 L Immature Gran % (Auto) Neut % (Auto) Lymph % (Auto) [place] % (Auto) Eos % (Auto) Baso % (Auto) Lymph # (Auto) [place] # (Auto) Eos # (Auto) Baso # (Auto) Abs Immat Gran (auto) Absolute Neuts (auto) Absolute Nucleated RBC 0.000 Nucleated RBC % (auto) 0.0 Smear Tech's Comments Smear Path Review PT INR VBG pH VBG pCO2 VBG pO2 VBG HCO3 VBG O2 Saturation VBG Base Excess Sodium 145 Potassium 4.2 Chloride 115 H Carbon Dioxide 13 L Anion Gap 21 H BUN 15 Creatinine 1.50 H Estim Creat Clear Calc 66.6 Estimated GFR 49 POC Glucose Random Glucose 104 Lactic Acid Lactic Acid F/U @ 2Hr 6.4 H* Lactic Acid F/U @ 4Hr Calcium 8.0 L Phosphorus 7.1 H 1.6 L Magnesium 2.1 Total Bilirubin 0.3 AST 665 H ALT 380 H Alkaline Phosphatase 90 Troponin I High Sens Total Protein 6.9 Albumin 4.1 Hold Yellow Top See Note Urine Color Urine Appearance Urine pH Ur Specific [place] Urine Protein Urine Glucose (UA) Urine Ketones Urine Blood Urine Nitrite Ur Leukocyte Esterase Urine RBC Urine WBC Ur Squamous Epith Cells Urine Bacteria Hyaline Casts Stool Occult Blood Urine Opiates Screen Ur Buprenorphine Scrn Ur Oxycodone Screen Urine Methadone Screen Urine Fentanyl Screen Ur Barbiturates Screen Ur Phencyclidine Scrn Ur Amphetamines Screen U Benzodiazepines Scrn Urine Cocaine Screen U Marijuana (THC) Screen Ethyl Alcohol Blood Type Antibody Screen Crossmatch 01/24/24 01/25/24 01/25/24 22:19 05:15 05:16 WBC 13.5 H RBC 6.92 H Hgb 20.1 H Hct 61.2 H MCV 88.4 MCH 29.0 MCHC 32.8 RDW 15.7 Plt Count 235 MPV 9.2 L Immature Gran % (Auto) 0.7 H Neut % (Auto) 77.3 H Lymph % (Auto) 7.3 L [place] % (Auto) 14.3 H Eos % (Auto) 0.0 Baso % (Auto) 0.4 Lymph # (Auto) 1.0 L [place] # (Auto) 1.9 H Eos # (Auto) 0.0 Baso # (Auto) 0.1 Abs Immat Gran (auto) 0.09 H Absolute Neuts (auto) 10.4 H Absolute Nucleated RBC 0.020 H Nucleated RBC % (auto) 0.1 Smear Tech's Comments VERIFIED Smear Path Review SEE NOTE PT INR VBG pH 7.16 L* VBG pCO2 42 VBG pO2 35 VBG HCO3 15 L VBG O2 Saturation 58.0 VBG Base Excess -12.7 Sodium 146 H Potassium 5.1 D Chloride 113 H Carbon Dioxide 17 L Anion Gap 21 H BUN 25 H Creatinine 2.31 H Estim Creat Clear Calc 44.7 Estimated GFR 30 POC Glucose Random Glucose 109 Lactic Acid Lactic Acid F/U @ 2Hr Lactic Acid F/U @ 4Hr 4.2 H* Calcium 8.3 L Phosphorus 5.6 H Magnesium 2.3 Total Bilirubin 0.6 AST 357 H ALT 396 H Alkaline Phosphatase 82 Troponin I High Sens Total Protein 7.1 Albumin 4.1 Hold Yellow Top Urine Color Urine Appearance Urine pH Ur Specific [place] Urine Protein Urine Glucose (UA) Urine Ketones Urine Blood Urine Nitrite Ur Leukocyte Esterase Urine RBC Urine WBC Ur Squamous Epith Cells Urine Bacteria Hyaline Casts Stool Occult Blood Urine Opiates Screen Ur Buprenorphine Scrn Ur Oxycodone Screen Urine Methadone Screen Urine Fentanyl Screen Ur Barbiturates Screen Ur Phencyclidine Scrn Ur Amphetamines Screen U Benzodiazepines Scrn Urine Cocaine Screen U Marijuana (THC) Screen Ethyl Alcohol Blood Type Antibody Screen Crossmatch 01/25/24 05:45 WBC RBC Hgb Hct MCV MCH MCHC RDW Plt Count MPV Immature Gran % (Auto) Neut % (Auto) Lymph % (Auto) [place] % (Auto) Eos % (Auto) Baso % (Auto) Lymph # (Auto) [place] # (Auto) Eos # (Auto) Baso # (Auto) Abs Immat Gran (auto) Absolute Neuts (auto) Absolute Nucleated RBC Nucleated RBC % (auto) Smear Tech's Comments Smear Path Review PT INR VBG pH VBG pCO2 VBG pO2 VBG HCO3 VBG O2 Saturation VBG Base Excess Sodium Potassium Chloride Carbon Dioxide Anion Gap BUN Creatinine Estim Creat Clear Calc Estimated GFR POC Glucose Random Glucose Lactic Acid 5.0 H* Lactic Acid F/U @ 2Hr Lactic Acid F/U @ 4Hr Calcium Phosphorus Magnesium Total Bilirubin AST ALT Alkaline Phosphatase Troponin I High Sens Total Protein Albumin Hold Yellow Top Urine Color Urine Appearance Urine pH Ur Specific [place] Urine Protein Urine Glucose (UA) Urine Ketones Urine Blood Urine Nitrite Ur Leukocyte Esterase Urine RBC Urine WBC Ur Squamous Epith Cells Urine Bacteria Hyaline Casts Stool Occult Blood Urine Opiates Screen Ur Buprenorphine Scrn Ur Oxycodone Screen Urine Methadone Screen Urine Fentanyl Screen Ur Barbiturates Screen Ur Phencyclidine Scrn Ur Amphetamines Screen U Benzodiazepines Scrn Urine Cocaine Screen U Marijuana (THC) Screen Ethyl Alcohol Blood Type Antibody Screen Crossmatch Progress Note: A&P Assessment and plan (1) Cardiogenic shock: Status: Acute (2) Lactic acidosis: Status: Acute (3) Acute respiratory failure: Status: Acute (4) Acute encephalopathy: Status: Acute (5) Polysubstance use disorder: Status: Acute (6) Cardiac arrest: Status: Acute Plan 53-year-old male with past medical history of hypertension, hyperlipidemia, drug abuse was found down on the [address] in [place]. When EMS arrived there was no pulse and patient was in asystole, unknown down time prior to EMS arrival, total code duration about 25 minutes before ROSC was achieved. Intubated in the ED, on vasopressors, absent brainstem reflexes and urine drug screen positive for fentanyl. Poor prognosis, ongoing family discussion Neuro: Acute encephalopathy possibly due hypoxic ischemic brain injury given long duration of cardiac arrest needing 25 minutes of CPR and unknown duration of down time without any circulation prior to EMS arrival. CT of the brain was limited with contrast administration, showed cerebral edema. We will add dexamethasone Not a candidate for cooling protocol given the drug overdose and active GI bleed Close neurological status monitoring in the ICU every hour Cardiac arrest: Possibly secondary to drug overdose, down time of at least 25 minutes of active cardiac compressions with unknown down time prior to arrival of EMS Shock: Cardiogenic shock, secondary to cardiac arrest. We will get TTE On Levophed support, titrate Levophed to keep map above 65 mm Hg Lactic acidosis: Secondary to cardiac arrest and not due to sepsis or septic shock Initial lactate was 11, down to 4 and again up to 5 this morning Patient has cold extremities and poor perfusion which is leading to lactic acidosis Respiratory: Acute respiratory failure due to drug overdose leading to poor respiratory efforts Currently on ventilator support On PRVC mode FiO2 40, PEEP 5, TV 400, RR 20 Peak pressures and plateau pressures are under the curve Ventilator management bundle with head end elevation, aspiration precaution, chlorhexidine mouthwash GI bleed: Possibly secondary to stress ulcers We will closely monitor H&H Continue pantoprazole 40 mg IV b.i.d. Renal: Acute kidney injury due to ATN from cardiac arrest We will closely monitor I's and O's Avoid nephrotoxic medications Heme: Hemoglobin up to 20, post transfusion 2 units for GI bleed in the ED Received 2 units of PRBC in the ED Endocrine: Blood sugars under control Sliding scale insulin as needed Infectious disease: Pending pancultures Musculoskeletal: Decubitus ulcer prevention protocol Lines: Peripheral Prophylaxis: SCD, no heparin due to GI bleed, pantoprazole Quality Stroke Does the patient have a stroke diagnosis?: No VTE Prior VTE?: No VTE Risk Level:: Medical - moderate - high VTE Device Contraindication: Procedure Contraindicated VTE Drug Contraindication: N/A - Med Ordered
[2024-01-25] MEDS: dexAMETHasone sod phosphate 4 MG/ML VIAL IVPUSH ×3 (09:53→20:44)
[2024-01-25 10:23] LABS: Basophils Percent Auto 0.1 % (0-2); Eosinophils Percent Auto 0.1 % (0-4); Hemoglobin 19.8 g/dl (14.0-18.0); Imm Gran Abs Auto 0.04 X10*3/uL (0.00-0.03); Imm Gran Pct Auto 0.4 % (0.0-0.4); Lymphocytes Absolute Auto 0.9 X10*3/uL (1.2-4.9); Lymphocytes Percent Auto 8.5 % (20-40); Mean Corpuscular HGB Conc 33.8 g/dl (31.0-36.0); Mean Corpuscular Hemoglobin 29.1 pg (27.0-33.0); Mean Platelet Volume 9.7 fL (9.4-12.4); Monocytes Absolute Auto 1.2 X10*3/uL (0.1-1.2); Monocytes Percent Auto 11.9 % (2-11); Neutrophils Absolute Auto 8.1 x10*3/uL (2.0-8.3); Platelet Count 174 X10*3/uL (160-400); Red Cell Distribution Width 15.1 % (11.0-16.0); White Blood Count 10.3 X10*3/uL (4.8-10.8)
[2024-01-25 10:25] LABS: Hematocrit 58.5 % (42.0-52.0)
[2024-01-25 10:49] LABS: Alanine Aminotransferase 598 U/L (0-40); Albumin Level 3.6 g/dL (3.5-5.0); Alkaline Phosphatase 69 U/L (39-117); Anion Gap 24 (12-20); Aspartate Amino Transferase 584 U/L (5-37); Bilirubin Total 0.6 mg/dL (0.0-1.0); Blood Urea Nitrogen 35 mg/dL (9-16); Calcium 7.7 mg/dL (8.4-10.2); Carbon Dioxide 17 mmol/L (22-29); Chloride 113 mmol/L (96-108); Creatinine Clr Calc Pharmacy 37.7; Estimated Glomerular Filt Rate 25; Glucose Random 135 mg/dL (60-115); Magnesium 2.2 mg/dL (1.6-2.6); Potassium 4.7 mmol/L (3.3-5.1); Sodium 149 mmol/L (135-145); Total Protein 6.2 g/dL (6.5-8.0)
--- NOTE | 2024-01-25 11:27 | MHC.CM.PN ---
Pt intubated and unable to participate in CM assessment. Information obtained from pt's sister and niece with the assistance of a flooring machine feeder. Pt is in the [place] illegally and is using a fictitious name and in order to work. The name on his passport issued from [facility] is Travis Burns and is 1970. His niece provided a phone picture of pt's passport and will bring in the actual item to be scanned in to pt's EMR. Pt has been in the [place] for approximately one year and resides with a brother in [place]. Pt may have an anoxic injury and family is aware of the serious nature of his condition. CM explained to family that pt would not be eligible for insurance or post discharge services d/t his status. CM director updated on situation. Pt registration updated to correct name/ CM to follow.
[2024-01-25 11:39] LABS: Glucose, Whole Blood 130 mg/dL (60-115)
[2024-01-25 15:40] LABS: ~Lactic Acid-LAB USE ONLY 4.1 mmol/L (0.5-2.0)
[2024-01-25 17:21] LABS: Reflex Lactate? 2 Y
[2024-01-25 17:35] LABS: Glucose, Whole Blood 158 mg/dL (60-115)
[2024-01-25 18:11] LABS: ~Lactic Acid-LAB USE ONLY 4.1 mmol/L (0.5-2.0)
[2024-01-25] MEDS: Insulin Lispro 100 UNIT/ML 3 ML VIAL SUBCUT (18:12)
[2024-01-25 21:44] LABS: VBG Base Excess -1.7 mmol/L; VBG HCO3 23 mmol/L (22-26); VBG pCO2 39 mmHg; VBG pH 7.37 (7.32-7.43); VBG pO2 78 mmHg
[2024-01-25 21:45] LABS: MANUAL DIFF FLAG NO
[2024-01-25] MEDS: Metoprolol Tartrate 5 MG/5 ML VIAL IVPUSH (21:45)
[2024-01-25 21:46] LABS: Basophils Percent Auto 0.2 % (0-2); Imm Gran Abs Auto 0.04 X10*3/uL (0.00-0.03); Imm Gran Pct Auto 0.4 % (0.0-0.4); Lymphocytes Absolute Auto 0.6 X10*3/uL (1.2-4.9); Lymphocytes Percent Auto 6.1 % (20-40); Mean Corpuscular HGB Conc 34.1 g/dl (31.0-36.0); Mean Corpuscular Hemoglobin 28.8 pg (27.0-33.0); Mean Corpuscular Volume 84.5 fL (80.0-98.0); Mean Platelet Volume 9.8 fL (9.4-12.4); Monocytes Absolute Auto 0.7 X10*3/uL (0.1-1.2); Monocytes Percent Auto 7.6 % (2-11); Neutrophils Absolute Auto 8.2 x10*3/uL (2.0-8.3); Neutrophils Percent Auto 85.7 % (45-73); Platelet Count 143 X10*3/uL (160-400); Red Blood Count 6.59 X10*6/uL (4.60-5.80); Red Cell Distribution Width 15.1 % (11.0-16.0); White Blood Count 9.5 X10*3/uL (4.8-10.8)
[2024-01-25 21:49] LABS: Hematocrit 55.7 % (42.0-52.0)
[2024-01-25 22:11] LABS: Alanine Aminotransferase 1688 U/L (0-40); Albumin Level 3.6 g/dL (3.5-5.0); Alkaline Phosphatase 66 U/L (39-117); Anion Gap 23 (12-20); Aspartate Amino Transferase 1986 U/L (5-37); Bilirubin Total 0.5 mg/dL (0.0-1.0); Blood Urea Nitrogen 43 mg/dL (9-16); Calcium 7.9 mg/dL (8.4-10.2); Carbon Dioxide 22 mmol/L (22-29); Chloride 110 mmol/L (96-108); Creatinine Clr Calc Pharmacy 33.1; Estimated Glomerular Filt Rate 21; Glucose Random 161 mg/dL (60-115); Magnesium 2.1 mg/dL (1.6-2.6); Phosphorus 4.6 mg/dL (2.7-4.5); Sodium 151 mmol/L (135-145); Total Protein 6.3 g/dL (6.5-8.0)
[2024-01-25 23:02] LABS: Venous Blood Gas Refer to POC result
[2024-01-25 23:59] LABS: Glucose, Whole Blood 164 mg/dL (60-115)
[2024-01-26] VITALS (30 sets, daily range): BP systolic 105–188; BP diastolic 46–119; PULSE 69–129; RESP 14–21; TEMP 34.5–37.7; O2SAT 90–97; BMI 31.0
[2024-01-26] MEDS: Insulin Lispro 100 UNIT/ML 3 ML VIAL SUBCUT ×4 (00:01→17:54)
[2024-01-26] MEDS: Sodium Bicarbonate 8.4% 150 MEQ in Dextrose 5 % 850 ML 100 MEQ IV (02:45)
[2024-01-26] MEDS: dexAMETHasone sod phosphate 4 MG/ML VIAL IVPUSH ×4 (03:33→21:38)
[2024-01-26 05:18] LABS: Hematocrit 52.7 % (42.0-52.0); Hemoglobin 18.1 g/dl (14.0-18.0); Mean Corpuscular HGB Conc 34.3 g/dl (31.0-36.0); Mean Corpuscular Hemoglobin 29.2 pg (27.0-33.0); Mean Platelet Volume 9.3 fL (9.4-12.4); Platelet Count 130 X10*3/uL (160-400); Red Cell Distribution Width 14.7 % (11.0-16.0); White Blood Count 10.1 X10*3/uL (4.8-10.8)
[2024-01-26 05:49] LABS: Potassium 3.7 mmol/L (3.3-5.1)
[2024-01-26 05:50] LABS: Chloride 109 mmol/L (96-108); Creatinine Clr Calc Pharmacy 32.5; Estimated Glomerular Filt Rate 21; Sodium 153 mmol/L (135-145)
[2024-01-26 05:51] LABS: Alanine Aminotransferase 1792 U/L (0-40); Albumin Level 3.4 g/dL (3.5-5.0); Alkaline Phosphatase 64 U/L (39-117); Anion Gap 22 (12-20); Aspartate Amino Transferase 1638 U/L (5-37); Bilirubin Total 0.4 mg/dL (0.0-1.0); Blood Urea Nitrogen 50 mg/dL (9-16); Calcium 8.2 mg/dL (8.4-10.2); Carbon Dioxide 26 mmol/L (22-29); Glucose Random 184 mg/dL (60-115)
[2024-01-26 06:09] LABS: VBG Base Excess 3.2 mmol/L; VBG HCO3 27 mmol/L (22-26); VBG pCO2 39 mmHg; VBG pH 7.44 (7.32-7.43); VBG pO2 110 mmHg
[2024-01-26] MEDS: Pantoprazole Sodium 40 MG/10 ML VIAL IVPUSH ×2 (06:43→16:25)
[2024-01-26 08:17] LABS: Venous Blood Gas Refer to POC result
--- NOTE | 2024-01-26 08:51 | P.PNCC_ITS ---
Subjective Subjective Date of Service: 01/26/24 Critical Care Time (minutes): 45 Comment: Continues to be on ventilator support Absent brainstem reflexes CT showing diffuse brain edema Physical Exam 2 Vital Signs: Vital Signs: Last Vital Signs Temp 99.9 F 01/26/24 07:49 Pulse 129 H 01/26/24 07:49 Resp 20 01/26/24 07:49 BP 134/93 H 01/26/24 07:49 Pulse Ox 94 01/26/24 07:49 O2 Del Method Mechanical Ventil ation 01/26/24 07:49 O2 Flow Rate 40 01/24/24 16:19 FiO2 45 01/26/24 07:49 BMI result Body Mass Index 31.0 General: Patient in acute distress, ill appearing and tired appearing Nutritional Appearance: well nourished and overweight Eyes: appearance normal, both eyes and all related structures; Alignment and Position: alignment normal and position normal Neck: No lymphadenopathy, no thyromegaly Resp: bilateral air entry equal, no added sounds present Cardio: Regular rate, regular rhythm; Heart sounds: S1 normal heart sound present and S2 normal heart sound present GI: soft, nontender, no guarding, no hepatosplenomegaly : bladder normal to inspection, bladder normal to palpation, no renal angle tenderness Skin: no rashes or lesions noted and elasticity normal Neuro: Absent brainstem reflexes, no voluntary or involuntary spontaneous movements Objective Data Labs 01/26/24 04:55 01/26/24 08:00 Labs: Laboratory Results - last 24 hr 01/25/24 01/25/24 01/25/24 10:17 11:35 15:17 WBC 10.3 RBC 6.80 H Hgb 19.8 H Hct 58.5 H MCV 86.0 MCH 29.1 MCHC 33.8 RDW 15.1 Plt Count 174 D MPV 9.7 Immature Gran % (Auto) 0.4 Neut % (Auto) 79.0 H Lymph % (Auto) 8.5 L [place] % (Auto) 11.9 H Eos % (Auto) 0.1 Baso % (Auto) 0.1 Lymph # (Auto) 0.9 L [place] # (Auto) 1.2 Eos # (Auto) 0.0 Baso # (Auto) 0.0 Abs Immat Gran (auto) 0.04 H Absolute Neuts (auto) 8.1 Absolute Nucleated RBC 0.000 Nucleated RBC % (auto) 0.0 VBG pH VBG pCO2 VBG pO2 VBG HCO3 VBG O2 Saturation VBG Base Excess Sodium 149 H Potassium 4.7 Chloride 113 H Carbon Dioxide 17 L Anion Gap 24 H BUN 35 H Creatinine 2.74 H Estim Creat Clear Calc 37.7 Estimated GFR 25 POC Glucose 130 H Random Glucose 135 H Lactic Acid F/U @ 2Hr 4.1 H* Lactic Acid F/U @ 4Hr Calcium 7.7 L D Phosphorus Magnesium 2.2 Total Bilirubin 0.6 AST 584 H ALT 598 H Alkaline Phosphatase 69 Total Protein 6.2 L Albumin 3.6 01/25/24 01/25/24 01/25/24 17:30 17:43 21:34 WBC RBC Hgb Hct MCV MCH MCHC RDW Plt Count MPV Immature Gran % (Auto) Neut % (Auto) Lymph % (Auto) [place] % (Auto) Eos % (Auto) Baso % (Auto) Lymph # (Auto) [place] # (Auto) Eos # (Auto) Baso # (Auto) Abs Immat Gran (auto) Absolute Neuts (auto) Absolute Nucleated RBC Nucleated RBC % (auto) VBG pH 7.37 VBG pCO2 39 VBG pO2 78 VBG HCO3 23 VBG O2 Saturation 94.0 VBG Base Excess -1.7 Sodium Potassium Chloride Carbon Dioxide Anion Gap BUN Creatinine Estim Creat Clear Calc Estimated GFR POC Glucose 158 H Random Glucose Lactic Acid F/U @ 2Hr Lactic Acid F/U @ 4Hr 4.1 H* Calcium Phosphorus Magnesium Total Bilirubin AST ALT Alkaline Phosphatase Total Protein Albumin 01/25/24 01/25/24 01/26/24 21:37 23:55 04:55 WBC 9.5 10.1 RBC 6.59 H 6.20 H Hgb 19.0 H 18.1 H Hct 55.7 H 52.7 H MCV 84.5 85.0 MCH 28.8 29.2 MCHC 34.1 34.3 RDW 15.1 14.7 Plt Count 143 L 130 L MPV 9.8 9.3 L Immature Gran % (Auto) 0.4 Neut % (Auto) 85.7 H Lymph % (Auto) 6.1 L [place] % (Auto) 7.6 Eos % (Auto) 0.0 Baso % (Auto) 0.2 Lymph # (Auto) 0.6 L [place] # (Auto) 0.7 Eos # (Auto) 0.0 Baso # (Auto) 0.0 Abs Immat Gran (auto) 0.04 H Absolute Neuts (auto) 8.2 Absolute Nucleated RBC 0.000 0.000 Nucleated RBC % (auto) 0.0 0.0 VBG pH VBG pCO2 VBG pO2 VBG HCO3 VBG O2 Saturation VBG Base Excess Sodium 151 H 153 H Potassium 4.0 3.7 Chloride 110 H 109 H Carbon Dioxide 22 26 Anion Gap 23 H 22 H BUN 43 H 50 H Creatinine 3.12 H 3.18 H Estim Creat Clear Calc 33.1 32.5 Estimated GFR 21 21 POC Glucose 164 H Random Glucose 161 H 184 H Lactic Acid F/U @ 2Hr Lactic Acid F/U @ 4Hr Calcium 7.9 L 8.2 L Phosphorus 4.6 H Magnesium 2.1 Total Bilirubin 0.5 0.4 AST 1986 H 1638 H ALT 1688 H 1792 H Alkaline Phosphatase 66 64 Total Protein 6.3 L 6.0 L Albumin 3.6 3.4 L 01/26/24 05:09 WBC RBC Hgb Hct MCV MCH MCHC RDW Plt Count MPV Immature Gran % (Auto) Neut % (Auto) Lymph % (Auto) [place] % (Auto) Eos % (Auto) Baso % (Auto) Lymph # (Auto) [place] # (Auto) Eos # (Auto) Baso # (Auto) Abs Immat Gran (auto) Absolute Neuts (auto) Absolute Nucleated RBC Nucleated RBC % (auto) VBG pH 7.44 H VBG pCO2 39 VBG pO2 110 VBG HCO3 27 H VBG O2 Saturation 98.0 VBG Base Excess 3.2 Sodium Potassium Chloride Carbon Dioxide Anion Gap BUN Creatinine Estim Creat Clear Calc Estimated GFR POC Glucose Random Glucose Lactic Acid F/U @ 2Hr Lactic Acid F/U @ 4Hr Calcium Phosphorus Magnesium Total Bilirubin AST ALT Alkaline Phosphatase Total Protein Albumin Microbiology Microbiology Results: Microbiology 01/24/24 15:27 Blood - Venous Blood Culture - Preliminary No growth after 24 hours. 01/24/24 15:27 Blood - Venous Blood Culture - Preliminary No growth after 24 hours. Progress Note: A&P Assessment and plan (1) Cardiogenic shock: Status: Acute (2) Lactic acidosis: Status: Acute (3) Acute respiratory failure: Status: Acute (4) Acute encephalopathy: Status: Acute (5) Polysubstance use disorder: Status: Acute Plan 53-year-old male with past medical history of hypertension, hyperlipidemia, drug abuse was found down on the [place] in [place]. When EMS arrived there was no pulse and patient was in asystole, unknown down time prior to EMS arrival, total code duration about 25 minutes before ROSC was achieved. Intubated in the ED, on vasopressors, absent brainstem reflexes and urine drug screen positive for fentanyl. Poor prognosis, ongoing family discussion Neuro: Acute encephalopathy possibly due hypoxic ischemic brain injury given long duration of cardiac arrest needing 25 minutes of CPR and unknown duration of down time without any circulation prior to EMS arrival. CT of the brain was limited with contrast administration, showed cerebral edema. Continue dexamethasone We will get MRI of the brain to quantify brain injury today Not a candidate for cooling protocol given the drug overdose and active GI bleed Close neurological status monitoring in the ICU every hour Cardiac arrest: Possibly secondary to drug overdose, down time of at least 25 minutes of active cardiac compressions with unknown down time prior to arrival of EMS Shock: Cardiogenic shock, secondary to cardiac arrest. Off of Levophed support this morning, titrate Levophed to keep map above 65 mm Hg Lactic acidosis: Secondary to cardiac arrest and not due to sepsis or septic shock Initial lactate was 11, down to 4 a Patient has cold extremities and has poor perfusion which is leading to lactic acidosis Respiratory: Acute respiratory failure due to drug overdose leading to poor respiratory efforts Currently on ventilator support On PRVC mode FiO2 increased to 60, PEEP 5, TV 400, RR 20 Peak pressures and plateau pressures are under the curve Ventilator management bundle with head end elevation, aspiration precaution, chlorhexidine mouthwash GI bleed: Possibly secondary to stress ulcers We will closely monitor H&H Continue pantoprazole 40 mg IV b.i.d. Shock liver: LFTs 1500 and 1700 secondary to shock liver Secondary to cardiac arrest and loss of perfusion for significant duration Renal: Acute kidney injury due to ATN from cardiac arrest Worsening renal function, creatinine up to 3.2 today We will closely monitor I's and O's Avoid nephrotoxic medications Hypernatremia: 153, possibly secondary to sodium biacrbonate which is turned off this morning will give him litre of half NS Heme: post transfusion 2 units for GI bleed in the ED Received 2 units of PRBC in the ED Endocrine: Blood sugars under control Sliding scale insulin as needed Infectious disease: Pancultures are negative not on antibiotics Musculoskeletal: Decubitus ulcer prevention protocol Lines: Peripheral Prophylaxis: SCD, no heparin due to GI bleed, pantoprazole Critical take and he spent about 45 minutes on ventilator management, close hemodynamic monitoring, close neurological status in this complex and critical ill patient with multiple organ failures Quality Stroke Does the patient have a stroke diagnosis?: No VTE Prior VTE?: No VTE Risk Level:: Medical - moderate - high VTE Device Contraindication: Procedure Contraindicated VTE Drug Contraindication: N/A - Med Ordered
[2024-01-26 08:54] LABS: Anion Gap 20 (12-20); Blood Urea Nitrogen 50 mg/dL (9-16); Carbon Dioxide 26 mmol/L (22-29); Chloride 111 mmol/L (96-108); Creatinine Clr Calc Pharmacy 32.2; Potassium 3.6 mmol/L (3.3-5.1); Sodium 153 mmol/L (135-145)
[2024-01-26 08:55] LABS: Alanine Aminotransferase 1814 U/L (0-40); Albumin Level 3.5 g/dL (3.5-5.0); Alkaline Phosphatase 63 U/L (39-117); Aspartate Amino Transferase 1425 U/L (5-37); Bilirubin Total 0.5 mg/dL (0.0-1.0); Calcium 8.4 mg/dL (8.4-10.2); Estimated Glomerular Filt Rate 21; Glucose Random 172 mg/dL (60-115); Total Protein 6.2 g/dL (6.5-8.0)
[2024-01-26] MEDS: Sodium Chloride 0.45 % 1,000 ML 999 ML IVCONT (09:32)
--- NOTE | 2024-01-26 09:43 | MHC.CLN ---
F/U PT REMAINS INTUBATED DISCUSSED AT ROUNDS WITH MD-MRI TODAY PT RECEIVING JEVITY 1.0 AT 20ML/HR PROVIDES 509KCALS, 21G PROTEIN, 401ML FREE WATER FROM FORMULA MONITOR TOLERANCE, RESIDUALS AND LYTES
[2024-01-26] MEDS: Labetalol HCL 100 MG/20 ML VIAL 20 MG IVPUSH (10:40)
--- NOTE | 2024-01-26 13:43 | MHC.CM.PN ---
Patient remains intubated/vented in ICU. Head MRI scheduled for today. Continue to monitor for d/c needs.
[2024-01-26 14:53] LABS: Glucose, Whole Blood 200 mg/dL (60-115)
--- NOTE | 2024-01-26 15:24 | PC.NURSE ---
Established contact with [facility] regarding patient disposition. Spoke with Rosita, who asked to be contacted with updates regarding disposition and code status. Ref number is [id number].
[2024-01-26 17:33] LABS: Glucose, Whole Blood 180 mg/dL (60-115)
[2024-01-26] MEDS: fentaNYL citrate/NS 1,000 MCG/100 ML PLAST..BAG 10 MCG IVCONT (21:50)
--- NOTE | 2024-01-26 21:57 | W.MHC.ACPN ---
Advanced Care Planning Note Advanced Care Planning Note Discussed with: family member(s) Time spent (in minutes): 60 Narrative: I had a Lengthy discussion with all family member, there were new family members adjust had arrive from out of state and who wanted a clarification, review of laboratories, images and clinical scenario. A detail review of the patient's chart took place including but not limited to explaining to the best of my abilities what each laboratory meant, CT results as well as MRI, comparison of normal images versus the patient's and what the meaning of them is respectively. After much hesitation, the patient's son who is a 26-year-old [place]istanian 27-year-old Tristanian male Jose Angel Andrade who is more than capable of making decisions, has the ability to answer complex questions and appears to fully understand the current situation, he spoke to the patient's brothers and asked him to respect his decision of not letting his father suffer anymore. At 21:40, the patient's son and the patient's 2 brothers asked me to go ahead with a terminal extubation and make the patient comfort measures only. At this time, the patient was made comfort measures, fentanyl drip was started and family members were allowed back into the room. Extubation went as planned, the patient slowly started to become hypoxic and 20 minutes after extubation, the patient's heart rate dropped suddenly and then stopped. At? 2215 asystole was noted on the monitor.? At this time, the patient has no heartbeat, no palpable pulses, pupils are fixed at 5 mm bilaterally, overall that anterior chamber and cornea of the eyes appear glossy, no spontaneous breathing.? There is no corneal reflexes bilaterally, capillary refill of the fingers and toes is significantly delayed.? Patient was pronounced at 2215?. Certificate Completed. Organ Center Called by RN but family declined to donate organs. Total time spent with the patient planning, coordinating, insuring a natural, non suffering and humane passing? as well as pronouncement evaluation, and this documentation was 60 minutes. Discussed in detail with Dr. Calderon.? He is aware of all the above. Problems Discussed (1) Cardiogenic shock: (2) Lactic acidosis: (3) Acute respiratory failure: (4) Acute encephalopathy: (5) Polysubstance use disorder:
--- NOTE | 2024-01-26 23:29 | PC.NURSE ---
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 Pt asystole at 2215. [facility] declined - case #[id number].
--- NOTE | 2024-01-27 00:22 | PC.NURSE ---
Pt family notified ICU PA pt correct last name is Jonathan - previously documented as Jose Luis. Switchboard notified and changed in chart.
--- NOTE | 2024-01-27 01:20 | PM.DS ---
DS: Providers Provider Date of Service: 01/26/24 Date of admission: 01/24/24 15:23 Date of discharge: 01/26/24 Primary care physician: Unknown Physician Admitting clinician: Regis Calderon Attending physician on admission: Regis Calderon Consults: 01/26/24 18:13 Consult to [facility] ([facility]) Stat [facility] Attending physician on discharge: Regis Calderon Discharging clinician: Cole Palacio DS: Diagnosis Discharge Diagnosis (1) Cardiogenic shock: Status: Acute (2) Lactic acidosis: Status: Acute (3) Acute respiratory failure: Status: Acute (4) Acute encephalopathy: Status: Acute (5) Polysubstance use disorder: Status: Acute DS: Summary Hospital Course Hospital Course: ADMISSION/DISCHARGE DIAGNOSIS 1.? Severe anoxic brain injury post cardiac arrest 2.? Cardiogenic shock 3.? Acute respiratory failure 4.? Lactic acidosis 5.? Anoxic encephalopathy 6.? Opiate overdose 7.? Polysubstance abuse 8.? Acute kidney injury due to hypoperfusion 9.? Shock liver syndrome Recent of : ?Severe anoxic brain injury post cardiac arrest and respiratory failure Today's events leading to patient's expiration: I had a Lengthy discussion with all family member, there were new family members adjust had arrive from out of state and who wanted a clarification, review of laboratories, images and clinical scenario. A detail review of the patient's chart took place including but not limited to explaining to the best of my abilities what each laboratory meant, CT results as well as MRI, comparison of normal images versus the patient's and what the meaning of them is respectively. After much hesitation, the patient's son who is a 27-year-old Sudanese male who is more than capable of making decisions, has the ability to answer complex questions and appears to fully understand the current situation, he, spoke to the patient's brothers and asked him to respect his decision of not letting his father suffer anymore. At 21:40, the patient's son and the patient's 2 brothers asked me to go ahead with a terminal extubation and make the patient comfort measures only. At this time, the patient was made comfort measures, fentanyl drip was started and family members were allowed back into the room. Extubation went as planned 2144, the patient slowly started to become hypoxic and 20 minutes after extubation, the patient's heart rate dropped suddenly and then stopped. At? 2214 asystole was noted on the monitor.? At this time, the patient has no heartbeat, no palpable pulses, pupils are fixed at 5 mm bilaterally, overall that anterior chamber and cornea of the eyes appear glossy, no spontaneous breathing.? There is no corneal reflexes bilaterally, capillary refill of the fingers and toes is significantly delayed.? Patient was pronounced at 2214?. Certificate Completed. Organ Center Called by RN but family declined to donate organs. HPI/hospital course: ?53-year-old male with past medical history of hypertension, dropped became abuse, multiple admissions in the past for drug use disorder was found unresponsive in the street and EMS was called. When the EMS reached patient was in asystole, CPR was started later hooked to a Richard, LMA was placed and brought into the ED. EN route patient received 5 doses of epinephrine, in the ED CPR was continued for another 15 minutes, ET tube was placed and patient was placed on ventilator. There was 1 time when the rhythm converted into tarsal days and was defibrillated. Patient also had large bloody bowel movements in the ED. his hypotensive, started on Levophed support for vasopressor.? Kvng REYES Patient was admitted to the ICU on 01/24/2024 but the above-mentioned physician, it was eminent that the patient suffered a acute hypoxic encephalopathy with CT evidence of anoxic brain injury, not a candidate for cooling protocol due to GI bleed and drug overdose, the patient was supported with vasopressors, IV fluids were given, he was kept on the ventilator all throughout the day (01/26/2024), Protonix was given IV, insulin sliding scale, pressure ulcer precautions among other ICU care. Throughout the admission, laboratories were checked repetitively, they seemed to be getting worse including renal function liver function, given the significant acidosis the patient did receive sodium bicarb correcting the acidosis however the patient did become somewhat hypernatremic. Despite of our efforts and the fact that he never received any type of sedatives, the patient remained unresponsive and without any type of reflexes, the above-mentioned information was communicated with the family who insisted that we should do an MRI, this was done earlier today, this showed diffused anoxic brain injury with evidence of herniation. 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 Critical care time used for critical evaluation of this patient, diagnosis, treatment and coordination of care, review her records and documentation TOTAL CRITICAL CARE TIME 45 MIN . discussion and coordination with consultants, completely separate from any procedures performed. . Patient's care was discussed in detail with Dr. Calderon. He is aware of all the above as well as the plan of care for this patient.. Time Attestation Total time managing care of this patient today: 30 mintues. Discharge Coordination Time (in mins): 45 minutes Quality: Safe Use of Opioids Does Pt have an Active Cancer Diagnosis on the Problem List?: No Quality: Stroke Does the patient have a stroke diagnosis?: No Physical Exam Vital Signs: Vital Signs: Last Vital Signs Temp 97.7 F 01/26/24 21:00 Pulse 98 01/26/24 21:00 Resp 20 01/26/24 21:00 BP 120/76 01/26/24 21:00 Pulse Ox 94 01/26/24 21:00 O2 Del Method Mechanical Ventil ation 01/26/24 21:00 O2 Flow Rate 40 01/24/24 16:19 FiO2 45 01/26/24 21:00 BMI result Body Mass Index 31.0 DS: Data Data Completed and Pending Labs on day of discharge: Laboratory Results - last 24 hr 01/26/24 01/26/24 01/26/24 04:55 05:09 08:00 WBC 10.1 RBC 6.20 H Hgb 18.1 H Hct 52.7 H MCV 85.0 MCH 29.2 MCHC 34.3 RDW 14.7 Plt Count 130 L MPV 9.3 L Absolute Nucleated RBC 0.000 Nucleated RBC % (auto) 0.0 VBG pH 7.44 H VBG pCO2 39 VBG pO2 110 VBG HCO3 27 H VBG O2 Saturation 98.0 VBG Base Excess 3.2 Sodium 153 H 153 H Potassium 3.7 3.6 Chloride 109 H 111 H Carbon Dioxide 26 26 Anion Gap 22 H 20 BUN 50 H 50 H Creatinine 3.18 H 3.15 H Estim Creat Clear Calc 32.5 32.2 Estimated GFR 21 21 POC Glucose Random Glucose 184 H 172 H Calcium 8.2 L 8.4 Total Bilirubin 0.4 0.5 AST 1638 H 1425 H ALT 1792 H 1814 H Alkaline Phosphatase 64 63 Total Protein 6.0 L 6.2 L Albumin 3.4 L 3.5 01/26/24 01/26/24 14:49 17:28 WBC RBC Hgb Hct MCV MCH MCHC RDW Plt Count MPV Absolute Nucleated RBC Nucleated RBC % (auto) VBG pH VBG pCO2 VBG pO2 VBG HCO3 VBG O2 Saturation VBG Base Excess Sodium Potassium Chloride Carbon Dioxide Anion Gap BUN Creatinine Estim Creat Clear Calc Estimated GFR POC Glucose 200 H 180 H Random Glucose Calcium Total Bilirubin AST ALT Alkaline Phosphatase Total Protein Albumin Preliminary micro results at discharge 01/24/24 15:27 Blood Culture - Preliminary Blood - Venous No growth after 48 hours. 01/24/24 15:27 Blood Culture - Preliminary Blood - Venous No growth after 48 hours. Imaging MRI - head: Radiologist's impression: ITS Impressions Abdomen/Pelvis CT 01/24/24 15:02 IMPRESSION: A cause for the patient's rectal bleeding has not been found. No evidence of active GI bleeding at this time. Fleischner guidelines were followed. Cervical Spine CT 01/24/24 18:03 IMPRESSION: Study is limited by motion and contrast within the vascular system. 1. Study is limited for the evaluation of subarachnoid hemorrhage due to contrast within vascular structures. No evidence for parenchymal hemorrhage. 2. Loss of baird-white differentiation. This may be related to cerebral edema. Consider repeat/follow-up study 3. No evidence of acute fracture or dislocation cervical spine. 4. Mild to moderate cervical spondylosis. 5. Mild paranasal sinus disease. Head CT 01/24/24 18:03 IMPRESSION: Study is limited by motion and contrast within the vascular system. 1. Study is limited for the evaluation of subarachnoid hemorrhage due to contrast within vascular structures. No evidence for parenchymal hemorrhage. 2. Loss of baird-white differentiation. This may be related to cerebral edema. Consider repeat/follow-up study 3. No evidence of acute fracture or dislocation cervical spine. 4. Mild to moderate cervical spondylosis. 5. Mild paranasal sinus disease. Chest X-Ray 01/25/24 09:26 IMPRESSION: Well-positioned endotracheal tube and nasogastric tube. Bibasilar atelectasis. Brain MRI 01/26/24 13:50 IMPRESSION: Diffuse cerebral edema and restricted diffusion throughout the cerebral cortices, deep nuclei, and cerebellum consistent with developing anoxic brain injury. There is downward herniation of the cerebellar tonsils through the foramen magnum (0.8 cm). No evidence of space-occupying hemorrhagic transformation at this time. Discharge Plan Discharge Date/Time: 01/26/24 22:15 Patient Disposition: Discharge Diagnosis: Severe anoxic brain injury post cardiac arrest Referrals: Physician,Ginger J [Primary Care Provider] - 1 Week Discharge Medications: No Action No Known Home Meds Print Language: Romanian Discharge Date/Time: 01/26/24 22:15
[2024-02-08 11:43] LABS: Glucose, Whole Blood 170 mg/dL (60-115)
== END 2024-01-26 22:15 | disposition expired | DRG 917 ==
LOC: HO.ED 15:24 → HO.EDOVER 15:32 → HO.ICU 15:43
PROVIDERS: Physician Assistant Medical; Admitting Provider Internal Medicine Critical Care Medicine; Emergency Provider Student in an Organized Health Care Education/Training Program; Visit Provider Internal Medicine Critical Care Medicine
DX: T65.91XA Toxic effect of unspecified substance, accidental (unintentional), initial encounter (principal); G93.6 Cerebral edema; J96.01 Acute respiratory failure with hypoxia; K27.4 Chronic or unspecified peptic ulcer, site unspecified, with hemorrhage; N17.0 Acute kidney failure with tubular necrosis; K72.00 Acute and subacute hepatic failure without coma; E87.21 Acute metabolic acidosis; G93.1 Anoxic brain damage, not elsewhere classified; E87.0 Hyperosmolality and hypernatremia; D62 Acute posthemorrhagic anemia; Z51.5 Encounter for palliative care; I46.9 Cardiac arrest, cause unspecified; I10 Essential (primary) hypertension; R57.0 Cardiogenic shock; E78.5 Hyperlipidemia, unspecified; F19.10 Other psychoactive substance abuse, uncomplicated
CPT/HCPCS: 36415; 70450; 70551; 71045; 72125; 74178; 80053; 80307; 81001; 82272; 82803; 82947; 83605; 83735; 84100; 84484; 85025; 85027; 85610; 86850; 86900; 86901; 86920; 87040; 93005; 94002; 94003; 94799; 99285; C1758; J0171; J0696; J1100; J1920; J2310; J2470; J3010; J7120; P9016; Q9967

== ENCOUNTER → 2024-01-24 15:23 | Outpatient (BNV) | payer SELFPAY | PROVIDERS: Admitting Provider Internal Medicine Critical Care Medicine; Emergency Provider Student in an Organized Health Care Education/Training Program; Visit Provider Internal Medicine Critical Care Medicine | DX: R57.0 Cardiogenic shock (principal); J96.00 Acute respiratory failure, unspecified whether with hypoxia or hypercapnia; E87.20 Acidosis, unspecified; G93.40 Encephalopathy, unspecified; F19.90 Other psychoactive substance use, unspecified, uncomplicated; I46.9 Cardiac arrest, cause unspecified | CPT/HCPCS: 99239; 99291 ==